=== PATIENT | male | born 1975 | race Caucasian/White ===

== ENCOUNTER 2018-01-30 01:59 | Emergency (ER) | payer OTHER ==
[~2018-01-30] VITALS: Ht 170.2 cm; Wt 93.0 kg
[2018-01-30 02:06] VITALS: BP_SYST 147
[2018-01-30 02:21] VITALS: BP_SYST 147
== END 2018-01-30 02:15 ==
LOC: SED 01:59
DX: Z02.89 Encounter for other administrative examinations (principal)